=== PATIENT | female | born 1930 | race Caucasian/White ===

== ENCOUNTER 2018-03-16 15:22 | Emergency (ER) | payer OTHER ==
[~2018-03-16] VITALS: Ht 165.1 cm; Wt 63.0 kg
[~2018-03-16 15:22] MED LIST: AVALIDE 150-12.1 TA1; AVAPRO150 MG; AVAPRO300 MG PO; EXCELON COM; GABAPENTIN600 MG PO; NABUMETONE500 MG PO; OMEPRAZOLE20 MG PO; PERCOCET 5/3251 TAB PO; VERAPAMIL ER240 MG PO
[2018-03-16] MEDS ORDERED: XARELTO20 MG (15:33)
[2018-03-16] MEDS ORDERED: NORVASC2.5 M1 (15:37)
[2018-03-16] MEDS ORDERED: CARDURA8 MG (15:38)
== END 2018-03-16 18:13 | disposition home or self-care (01) ==
LOC: ER 15:22
DX: J45.998 Other asthma (principal)

== ENCOUNTER → 2018-10-09 | Outpatient (CLI) | payer OTHER ==
[~2018-10-09] MED LIST changes: +CARDURA8 MG; +NORVASC2.5 M1; +XARELTO20 MG
== END | disposition home or self-care (01) ==
LOC: MRI 14:19
DX: I63.89 Other cerebral infarction (principal)
CPT/HCPCS: 70551

== ENCOUNTER 2018-10-16 12:40 | Outpatient (CLI) | payer OTHER | END 2018-10-16 13:03 | disposition home or self-care (01) | LOC: SONOGRAMA 12:40 | DX: M25.512 Pain in left shoulder (principal); M75.122 Complete rotator cuff tear or rupture of left shoulder, not specified as traumatic ==

== ENCOUNTER 2018-12-14 10:23 | Outpatient (CLI) | payer OTHER | END 2018-12-14 10:25 | disposition home or self-care (01) | LOC: RAD 10:23 | DX: R07.89 Other chest pain (principal) ==

== ENCOUNTER 2019-02-09 12:12 | Emergency (ER) | payer OTHER ==
[~2019-02-09] VITALS: Ht 165.1 cm; Wt 63.0 kg
[2019-02-09] MEDS ORDERED: CARDURA XL8 MG (13:58)
== END 2019-02-09 20:25 | disposition home or self-care (01) ==
LOC: ER 12:12
DX: J06.9 Acute upper respiratory infection, unspecified (principal)

== ENCOUNTER 2019-04-20 15:00 | Emergency (ER) | payer OTHER ==
[~2019-04-20] VITALS: Ht 170.2 cm; Wt 65.8 kg
[~2019-04-20 15:00] MED LIST changes: +CARDURA XL8 MG
== END 2019-04-20 18:44 | disposition home or self-care (01) ==
LOC: ER 15:00
DX: J11.1 Influenza due to unidentified influenza virus with other respiratory manifestations (principal)

== ENCOUNTER 2020-04-28 10:14 | Inpatient (IN) | payer OTHER ==
[~2020-04-28] VITALS: Wt 5.0 kg
[2020-04-28] MEDS ORDERED: CHLORTHALIDONE25 MG (10:34)
[2020-04-28] MEDS ORDERED: IRON236 MG (10:35)
[2020-05-13] MEDS ORDERED: HYDRALAZINE HCL25 MG PO (15:26)
[2020-05-13] MEDS ORDERED: DOXAZOSIN MESYLA8 MG PO (15:26)
[2020-05-13] MEDS ORDERED: FLUCONAZOLE50 MG PO (15:26)
[2020-05-13] MEDS ORDERED: NIFEDIPINE ER30 MG PO (15:26)
== END 2020-05-13 20:14 | disposition home or self-care (01) | DRG 690 ==
LOC: ER 10:14 → MEDJ 18:02 → SURH 05-03 10:12
PROVIDERS: ADMIT Internal Medicine; ATTEND Internal Medicine
PROC: 4A12X4Z Monitoring of Cardiac Electrical Activity, External Approach (ICD-10-PCS; 2020-04-30)
PROC: 02HV33Z Insertion of Infusion Device into Superior Vena Cava, Percutaneous Approach (ICD-10-PCS; principal; 2020-05-04)
PROC: B24BZZZ Ultrasonography of Heart with Aorta (ICD-10-PCS; 2020-05-04)
PROC: CW1NLZZ Planar Nuclear Medicine Imaging of Whole Body using Gallium 67 (Ga-67) (ICD-10-PCS; 2020-05-04)
PROC: CD271ZZ Tomographic (Tomo) Nuclear Medicine Imaging of Gastrointestinal Tract using Technetium 99m (Tc-99m) (ICD-10-PCS; 2020-05-09)
PROC: 30233N1 Transfusion of Nonautologous Red Blood Cells into Peripheral Vein, Percutaneous Approach (ICD-10-PCS; 2020-05-09)
DX: N39.0 Urinary tract infection, site not specified (principal); N17.8 Other acute kidney failure; I10 Essential (primary) hypertension; F41.1 Generalized anxiety disorder; D64.9 Anemia, unspecified; Z53.1 Procedure and treatment not carried out because of patient's decision for reasons of belief and group pressure; Z20.822 Contact with and (suspected) exposure to COVID-19

== ENCOUNTER 2020-05-18 11:06 | Emergency (ER) | payer OTHER ==
[~2020-05-18] VITALS: Ht 162.6 cm; Wt 61.2 kg
[~2020-05-18 11:06] MED LIST changes: +CHLORTHALIDONE25 MG; +DOXAZOSIN MESYLA8 MG PO; +FLUCONAZOLE50 MG PO; +HYDRALAZINE HCL25 MG PO; +IRON236 MG; +NIFEDIPINE ER30 MG PO
== END 2020-05-18 17:41 | disposition home or self-care (01) ==
LOC: ER 11:06
DX: K29.70 Gastritis, unspecified, without bleeding (principal)